=== PATIENT | female | born 1955 | race Caucasian/White ===

== ENCOUNTER → 2017-05-19 | Outpatient (CLI) | payer OTHER ==
--- NOTE | 2017-05-23 09:09 | RSPPFT ---
DATE OF PROCEDURE: 05/19/17 COMMENTS: Spirometry with FVC of 2.0 predicted 2.6, FEV1 of 1.6 predicted 2.1, FEV1/FVC ratio 77% predicted 83%. Lung volumes are essentially within the predicted range as well as the DLCO. IMPRESSION: On the basis of the above, patient has flow values, lung volumes and DLCO within the predicted range.
== END ==
LOC: HRSP 12:45
PROVIDERS: ATTEND Internal Medicine Pulmonary Disease
DX: G47.30 Sleep apnea, unspecified (principal)
CPT/HCPCS: 94060; 94726; 94729